=== PATIENT | male | born 1935 | race Caucasian/White ===

== ENCOUNTER 2018-01-22 12:59 | Emergency (ER) | payer OTHER ==
[~2018-01-22 12:59] MED LIST: ASPI-621 PO; ATOR-2 PO; ATOR20TA9 PO; CARV3.1212 PO; CLOP75TA PO; ENAL10TA PO; HYDR12.53 PO; HYDR25TA6 PO; LEVO25TA4 PO; LISI5TAB7 PO; NITR0.4T28 SL; ROSU20TA PO; TICA90TA PO
[2018-01-22 13:40] LABS: BASOPHILS # (AUTO) 0.03 x10^3/uL (0-0.1); BASOPHILS % (AUTO) 0 % (0-1); EOSINOPHILS # (AUTO) 0.01 x10^3/uL (0-0.4); EOSINOPHILS % (AUTO) 0 % (1-7); LYMPHOCYTES # (AUTO) 0.74 x10^3/uL (1-3.4); LYMPHOCYTES % (AUTO) 9 % (22-44); MD NO; MEAN CORPUSCULAR HEMOGLOBIN 31.7 pg (27.5-34.5); MEAN CORPUSCULAR HGB CONC 34.7 g/dL (33.2-36.2); MEAN CORPUSCULAR VOLUME 91.4 fL (81-97); MEAN PLATELET VOLUME 6.9 fL (7.4-10.4); MONOCYTES # (AUTO) 0.49 x10^3/uL (0.2-0.8); MONOCYTES % (AUTO) 6 % (2-9); NEUTROPHILS % (AUTO) 85 % (42-75); PLATELET COUNT 423 x10^3/uL (130-400); RED BLOOD COUNT 3.78 x10^6/uL (4.38-5.82); RED CELL DISTRIBUTION WIDTH 18.8 % (9.4-14.8)
[2018-01-22 13:53] LABS: ALANINE AMINOTRANSFERASE 35 U/L (12-78); ALBUMIN 2.2 g/dL (3.4-5.0); ANION GAP 9 mmol/L (5-15); CALCIUM 8.4 mg/dL (8.5-10.1); CHLORIDE 103 mmol/L (98-107); CREATININE 0.74 mg/dL (0.7-1.3)
[2018-01-22 13:55] LABS: ALKALINE PHOSPHATASE 337 U/L (45-117); TOTAL PROTEIN 6.3 g/dL (6.4-8.2)
[2018-01-22 15:32] LABS: MICROSCOPIC INDICATED
[2018-01-22 15:33] LABS: CULTURE INDICATED? YES
[2018-01-22 16:14] VITALS: BP 118/65
== END 2018-01-22 16:16 | disposition home or self-care (01) ==
LOC: ED 14:44
DX: S09.8XXA Other specified injuries of head, initial encounter (principal); W05.1XXA Fall from non-moving nonmotorized scooter, initial encounter; Y93.89 Activity, other specified; Y92.091 Bathroom in other non-institutional residence as the place of occurrence of the external cause; Y99.8 Other external cause status; I25.2 Old myocardial infarction; Z86.718 Personal history of other venous thrombosis and embolism; Z86.711 Personal history of pulmonary embolism
CPT/HCPCS: 36415; 70450; 80053; 81001; 82140; 85025; 87086; 99285